=== PATIENT | female | born 1995 | race Caucasian/White ===

== ENCOUNTER 2020-02-01 13:49 | Emergency (ER) | payer OTHER ==
[~2020-02-01] VITALS: Ht 172.7 cm; Wt 66.0 kg
--- NOTE | 2020-02-01 15:00 | NUR ---
PT WITH INCREASED FATIGUE, PT STATES HAVING THYROID PROBLEMS. PT ADMITS TO TAKING 22MG OF ADDERAL TODAY AND YESTERDAY. AND OVER THE LAST TWO MONTHS ABUSING PAIN MEDICATIONS. PT DENIES COUGH/FEVER/SICK CONTACTS. ERP IN TO EVAL PT, PLAN FOR LABS AND DC
[2020-02-01 15:01] LABS: ALANINE AMINOTRANSFERASE 18 U/L (12-78); ALBUMIN 4.6 g/dL (3.4-5.0); ANION GAP 7 mmol/L (5-15); CALCIUM 8.9 mg/dL (8.5-10.1); CHLORIDE 106 mmol/L (98-107); CREATININE 0.82 mg/dL (0.55-1.02)
[2020-02-01 15:03] LABS: ALKALINE PHOSPHATASE 68 U/L (45-117); BILIRUBIN,TOTAL 2.1 mg/dL (0.2-1.0); TOTAL PROTEIN 8.1 g/dL (6.4-8.2)
[2020-02-01 15:06] LABS: BASOPHILS % (AUTO) 1 % (0-1); EOSINOPHILS % (AUTO) 1 % (1-7); LYMPHOCYTES % (AUTO) 21 % (22-44); MEAN CORPUSCULAR HEMOGLOBIN 31.8 pg (27.0-34.8); MEAN CORPUSCULAR HGB CONC 33.4 g/dL (32.4-35.8); MEAN PLATELET VOLUME 7.9 fL (7.4-10.4); MONOCYTES % (AUTO) 10 % (2-9); NEUTROPHILS % (AUTO) 68 % (42-75); PLATELET COUNT 303 x10^3/uL (130-400); RED BLOOD COUNT 4.56 x10^6/uL (3.82-5.3)
[2020-02-01 15:07] LABS: MD NO
[2020-02-01] MEDS ORDERED: ACETAMINOPHEN 500 MG TABLET PO ONE (17:00)
[2020-02-01] MEDS ORDERED: ACETAMINOPHEN 500 MG TABLET ONE (17:07)
--- NOTE | 2020-02-01 17:10 | NUR ---
PT MEDICATED PER MAR, COVID SWAB COMPLETED BY ERP, NO NEEDS AT THIS TIME
--- NOTE | 2020-02-01 18:06 | NUR ---
LAB CALLED TO [facility] RESULT LAB, [facility] RECREATION COORDINATOR STATES SHE HAS NOT RECIEVED ORDER, PT WITH NO NEEDS
--- NOTE | 2020-02-01 18:33 | NUR ---
PT UPDATED ON DELAY OF LAB, NEW ORDER PLACED BY DR MAZARIEGOS. NO NEEDS
--- NOTE | 2020-02-01 18:46 | NUR ---
BEDSIDE REPORT FROM [facility] RN, PT CARE TRANSFERRED AT THIS TIME. PT NAD, RESTING ON GURNEY, APPEARS COMFORTABLE, DENIES ADDITIONAL NEEDS, BED IN LOWEST, CALL LIGHT ON LAP, WCTM. WAITING FOR LAB RESULTS.
[2020-02-01 19:59] VITALS: BP 115/72
--- NOTE | 2020-02-01 20:00 | NUR ---
Patient given discharge instructions and they have confirmed that they understand the instructions. Patient ambulatory with steady gait. NAD, DENIES ADDITIONAL QUESTIONS OR NEEDS AT THIS TIME. NO PERSONAL BELONGINGS LEFT IN ROOM AT TIME OF DC
== END 2020-02-01 20:01 | disposition home or self-care (01) ==
LOC: ED 15:15
DX: B34.9 Viral infection, unspecified (principal); Z20.828 Contact with and (suspected) exposure to other viral communicable diseases; R50.9 Fever, unspecified; R53.83 Other fatigue; E06.9 Thyroiditis, unspecified
CPT/HCPCS: 36415; 80053; 84443; 85025; 87081; 87635; 87880; 99283

== ENCOUNTER 2020-08-09 21:32 | Emergency (ER) | payer OTHER ==
[~2020-08-09] VITALS: Ht 172.7 cm; Wt 73.6 kg
[2020-08-09 23:10] VITALS: BP 129/63
== END 2020-08-09 23:27 | disposition home or self-care (01) ==
LOC: ED 22:54
DX: R07.2 Precordial pain (principal); R00.2 Palpitations; M06.9 Rheumatoid arthritis, unspecified
CPT/HCPCS: 71045; 93005; 99283